=== PATIENT | male | born 1940 | race Caucasian/White ===

== ENCOUNTER → 2022-04-28 13:49 | Outpatient (CLI) | payer MEDICARE, OTHER, SELFPAY ==
--- NOTE | 2022-04-28 | DI.RAD.S_ITS ---
PROCEDURE: XR HIP W PEL IF DONE RT 2V INDICATIONS: RIGHT HIP PAIN TECHNIQUE: 2 views of the hip were acquired. COMPARISON: None. FINDINGS: Bones: No acute fractures or dislocations. Probable chronic healed inferior pubic ramus fracture. No suspicious bony lesions. The visualized pelvic ring appears intact. Severe joint space narrowing is seen in the superior right hip with subchondral sclerosis and marginal osteophyte formation. Soft tissues: No suspicious soft tissue calcifications or masses. IMPRESSION: Severe right hip osteoarthrosis. Dictated by: Reinaldo Ayala M.D. on 04/28/2022 at 16:17 Approved by: Reinaldo Ayala M.D. on 04/28/2022 at 16:18
== END ==
PROVIDERS: Referring Provider Internal Medicine; Visit Provider Internal Medicine
DX: M25.551 Pain in right hip (principal); M16.11 Unilateral primary osteoarthritis, right hip
CPT/HCPCS: 73502

== ENCOUNTER → 2022-10-06 09:39 | Outpatient (CLI) | payer MEDICARE, OTHER, SELFPAY ==
[2022-10-06 11:46] LABS: Add Manual Diff / Slide Review NO; Basophils Absolute Auto 0 /uL (0-100); Basophils Percent Auto 0.7 % (0-2); Eosinophils Absolute Auto 100 /uL (0-450); Eosinophils Percent Auto 1.6 % (2-4); Hemoglobin 14.4 g/dL (13.5-17.5); Lymphocytes Absolute Auto 1500 /uL (1100-4500); Lymphocytes Percent Auto 26.5 % (25-40); Mean Corpuscular HGB Conc 33.4 % (30-36); Mean Corpuscular Hemoglobin 31.2 PG (26-34); Mean Corpuscular Volume 93.4 fL (80-100); Monocytes Absolute Auto 500 /uL (0-900); Monocytes Percent Auto 8.4 % (3-14); Neutrophils Absolute Auto 3600 /uL (1500-7000); Neutrophils Percent Auto 62.8 % (50-75); Platelet Count 294 X10^3/uL (150-400); Red Cell Distribution Width 12.9 % (11.6-14.8); White Blood Cell Count 5.7 X10^3/uL (4.5-11.0)
[2022-10-06 11:48] LABS: Hemoglobin A1C% w Est Avg Glu 5.5 % (4.0-6.0)
[2022-10-06 11:59] LABS: BUN Creatinine Ratio 23.8 (6-22); Blood Urea Nitrogen 20 mg/dL (9-20); Carbon Dioxide 29 mmol/L (22-32); Chloride 103 mmol/L (98-107); Estimated Glomerular Filt Rate > 60 mL/min (>60); Glucose 93 mg/dL (80-110); HEMOLYSIS < 15 (0-50); Potassium 4.1 mmol/L (3.4-5.1); Sodium 142 mmol/L (137-145)
[2022-10-06 12:23] LABS: Appearance Urine UA CLEAR; Bilirubin Urine UA NEGATIVE (NEGATIVE); Color Urine UA YELLOW; Glucose Urine UA NEGATIVE (Negative); Ketones Urine UA NEGATIVE (NEGATIVE); Leukocyte Esterase Urine UA NEGATIVE (NEGATIVE); Nitrite Urine UA NEGATIVE (Negative); Occult Blood Urine UA TRACE-LYSED (Negative); Protein Urine UA NEGATIVE (Negative); Specific Gravity Urine UA 1.025 (1.000-1.035); Urobilinogen Urine UA 0.2 E.U./dL (0.2)
[2022-10-06 12:30] LABS: Bacteria Urine None Seen; Culture Indicated Urine Cult Not Indicated; Mucus Urine 2+ (Negative); RBC Urine None Seen (0-5/HPF); WBC Urine None Seen (0-5/HPF)
== END ==
PROVIDERS: Referring Provider Orthopaedic Surgery; Visit Provider Orthopaedic Surgery
DX: Z01.818 Encounter for other preprocedural examination (principal); R73.9 Hyperglycemia, unspecified; Z01.812 Encounter for preprocedural laboratory examination; N39.0 Urinary tract infection, site not specified
CPT/HCPCS: 36415; 80048; 81001; 83036; 85025; 93005; 93010

== ENCOUNTER → 2022-10-25 11:01 | Outpatient (CLI) | payer MEDICARE, OTHER, SELFPAY ==
[2022-10-25 11:40] LABS: COVID19 -Nasal RAPID Negative (Negative)
== END ==
PROVIDERS: PCP Internal Medicine; Referring Provider Orthopaedic Surgery; Visit Provider Orthopaedic Surgery
DX: Z20.822 Contact with and (suspected) exposure to COVID-19 (principal)
CPT/HCPCS: 87635; C9803

== ENCOUNTER 2022-10-26 06:09 | Day surgery (SDC) | payer MEDICARE, OTHER, SELFPAY ==
[2022-10-20 12:13] VITALS: BMI 23.6
[2022-10-26] VITALS (11 sets, daily range): BP systolic 85–147; BP diastolic 35–62; PULSE 54–62; RESP 12–24; TEMP 35.8–36.6; O2SAT 96–100; BMI 23.4
--- NOTE | 2022-10-26 | DI.RAD.S_ITS ---
PROCEDURE: XR HIP W PEL IF DONE RT 2V INDICATIONS: POST OP RIGHT HIP TECHNIQUE: AP pelvis and lateral view of the right hip acquired. COMPARISON: [facility], [place], XR HIP W PEL IF DONE RT 2V, 10/26/2022, 10:19. FINDINGS: Bones: Patient is status post right hip arthroplasty, with hardware components in expected positions. The hip joint appears congruent. The visualized bony structures appear intact. Soft tissues: Overlying postoperative changes are noted. No suspicious soft tissue densities. IMPRESSION: Expected appearance of right hip arthroplasty. Dictated by: Masood Hernandez M.D. on 10/26/2022 at 11:20 Transcribed by: JAVAN on 10/26/2022 at 11:21 Approved by: Masood Hernandez M.D. on 10/26/2022 at 16:31
--- NOTE | 2022-10-26 06:00 | DI.RAD.S_ITS ---
PROCEDURE: XR HIP W PEL IF DONE RT 2V INDICATIONS: ROQUE INNEROP TECHNIQUE: AP pelvis and lateral view of the right hip acquired. COMPARISON: [facility], [place], XR HIP W PEL IF DONE RT 2V, 04/28/2022, 14:03. [facility], [place], XR HIP W PEL IF DONE RT 2V, 10/26/2022, 10:29. FINDINGS: Intraoperative right hip arthroplasty changes are present. Images demonstrate good anatomic alignment. Surrounding osseous structures are intact. IMPRESSION: Intraoperative hip arthroplasty. Dictated by: Darlin Bran M.D. on 10/26/2022 at 16:27 Approved by: Darlin Bran M.D. on 10/26/2022 at 16:27
[2022-10-26] MEDS: VANCOMYCIN 1,000 MG/200 ML PIGGYBACK 200 MG IV (06:53)
[2022-10-26] MEDS: LACTATED RINGERS 1,000 ML 42 ML IV (06:55)
[2022-10-26] MEDS: ACETAMINOPHEN 325 MG TABLET 975 MG PO (07:05)
[2022-10-26] MEDS: CELECOXIB 200 MG CAPSULE PO (07:05)
--- NOTE | 2022-10-26 07:31 | PM.PREOP ---
Pre-operative Note COVID-19 COVID-19 status: Negative Interval Note History & Physical reviewed/Exam performed by Physician: Yes Changes to H&P: No
--- NOTE | 2022-10-26 07:32 | P.OP_ITS ---
Operative Date/Time/Diagnoses Date of procedure: 10/26/22 Time of procedure: 07:50 Pre-op diagnosis: right hip OA Post-op diagnosis: same Procedure & Clinicians Procedure: right total hip arthroplasty anterior approach Same procedure as scheduled: Yes Indications: The patient has had progressively worsening right hip pain with radiographic c hanges consistent with arthritis. Non-operative management has failed and the patient has requested total hip replacement. The risks, benefits and alternatives to surgery were discussed with the patient prior to proceeding. Risks discussed included, but were not limited to, failure to relieve pain, leg length discrepancy, dislocation, stiffness, infection, nerve damage, deep venous thrombosis, pulmonary embolism, stroke, coma, heart attack, permanent paralysis and , as well as the potential need for eventual revision of the prosthetic. Surgeon: Luz Maria Sewell Security Operations Manager: Graciela Gates Anesthesia Type: General and Spinal Operative Notes Findings: Severe right hip osteoarthritis, adequate stability Closure Type: primary Specimen(s): none sent Prosthetic devices, grafts, tissues, transplants, or devices: Sewell and nephew anthology size 10, size 58 R3 cup, neutral poly liner, 36 x -3 cobalt chrome head, one 6.5 mm screw Estimated Blood Loss (mL): 250 Blood products transfused: none Procedure in detail: The patient was brought to the operating room. Patient was carefully positioned in the supine position. Time-out was performed and antibiotics were given. Anesthesia was induced. He was positioned in the on the table in order to allow hyperextension of the hip. The right lower extremity was prepped and draped in a standard sterile fashion. An anterior right hip incision was made 1 fingerbreadth lateral to the anterior superior iliac spine and extended distally towards the greater trochanter. Dissection was carried out through skin and subcutaneous tissues. Superficial hemostasis was achieved. The fascia over the tensor fascia josh was defined and incised with a knife. Two Allis clamps were used to grasp the fascia. Tensor fascia josh was retracted laterally. A gelpi retractor was placed. Dissection was carried out down along the neck. The circumflex vessels were carefully identified and cauterized with the Aqua Mantis. There was good visualization of the femoral neck. A Cobra was placed superior to the neck and the gluteus fibers were carefully stripped from that superior aspect of the capsule. A 2nd retractor was placed along the inferior aspect of the neck. The rectus insertion along the capsule was partially released. A 3rd retractor that was then gently placed over the rim of the acetabulum under the rectus. Capsule was carefully incised and released from the intertrochanteric line circumferentially superior to the mid sagittal line and inferiorly to the mid sagittal line until the lesser trochanter was palpable. A tag stitch was placed both in the superior and inferior limb of the capsular insertion. Along the acetabulum capsule was also released up to the mid sagittal 12:00 position. A portion of the labrum was resected. A saw was used to perform an osteotomy at the level of the intertrochanteric line and the junction of the superior femoral neck leaving approximately 1 finger breath of residual inferior neck above the lesser trochanter. A 2nd cut was made along the femoral neck at the base of the head and a napkin ring of neck was removed. Corkscrew was placed in the femoral head and the head was removed without difficulty. Retractors were then repositioned around the acetabulum. Residual labrum was resected and additional osteophytes were removed. A reamer that was 4 mm below the templated size was placed by hand in the acetabulum and it was reamed to centralize the acetabulum. It was then reamed up to 2 under the templated size and fluoroscopy was brought in to confirm the position of the reaming and depth of reaming. I reamed 1 under the anticipated size. A trial cup was placed and noted that it was appropriately sized and fluoroscopy confirmed position and depth. The component was open and inserted without difficulty fluoroscopic imaging was used to confirm that the cup had been adequately seated and was well positioned. It was further stabilized with a single screw. Neutral poly liner was placed. The cup was tested and noted to be stable. Attention was then directed to the femur. The femur was gently hyperextended additional capsular release was performed as needed in order to allow adequate visualization of the proximal femur with elevation of the femur. Patient was placed in a hyperextended slightly adducted position with maximum external rotation. Box osteotome was used to check for any residual neck as well as sclerotic bone along the trochanter. Webster pepper was placed in the femur. Additional broaching was performed. Canal finder was used to determine the alignment of the canal and position. Size 1 broach was placed. The canal was then appropriately broached up to the templated size as long as there was adequate stability of the broach and serial advancement of the broach without excessive impingement. Specific attention was directed at avoiding varus attempting to direct the distal aspect of the broach more anteriorly and avoiding excessive anteversion. Trial reduction showed acceptable range of motion, good stability, no posterior impingement, taoist of leg length and appropriate lateral shuck. I also hyperflexed the hip and checked that there was no impingement anteriorly and there was good stability with flexion, adduction and internal rotation. Marcaine and Exparel were injected. The stem was placed without difficulty. Repeat trial reduction and x-ray showed acceptable overall position, length, and no evidence of the femoral fracture. Final head was placed. Wound was meticulously irrigated with normal saline. The hip was reduced and additional Exparel and Marcaine were injected. The capsule was closed with interrupted nonabsorbable sutures. The fascia of the tensor was closed with interrupted and running Vicryl. No drain was placed. Any tensor fascia josh muscle that appeared to be contused or injured which was a minimal amount was carefully resected. Capsule around the tensor was injected with Exparel and Marcaine. The skin was closed with barbed stitches for the subcutaneous tissue and skin. We also used surgical glue. The wound was dressed sterilely. Brief Betadine soak was also used and was meticulously irrigated with normal saline. Patient was transferred to recovery room in satisfactory condition. Complications: none Post-operative Condition: stable Disposition: Acute Care Plan for aftercare: The patient will be maintained on a standard total hip replacement protocol with weight bearing as tolerated and anterior hip precautions. The patient will receive Aspirin and sequential compression devices for DVT prophylaxis. The patient will be discharged home when safe for the home environment.
[2022-10-26] MEDS: CEFAZOLIN 2 GM/100 ML PREMIX 100 ML IV ×2 (07:55→16:20)
[2022-10-26] MEDS: TRANEXAMIC ACID 1,000 MG VIAL 2000 MG INJ ×2 (08:10→09:50)
--- NOTE | 2022-10-26 08:28 | SUR.OPER ---
Supine on padded Sully table with bilateral legs secured in padded positioning boots and suspended in positioning spars, operative leg in traction per surgeon. Head on one pillow. Arm on non-operative side secured on padded armboard <90 degrees abduction. Arm on operative side padded and resting across chest then secured with tape over sheet. Padded perineal post in place per surgeon.
[2022-10-26] MEDS: BUPIVACAINE LIPOSOME 266 MG/20 ML VIAL INJ (08:37)
[2022-10-26] MEDS: BUPIVACAINE 0.5% W/ EPI (PF) 30 ML VIAL INJ (08:38)
[2022-10-26] MEDS: LACTATED RINGERS 1,000 ML 125 ML IV ×2 (11:34→13:52)
[2022-10-26] MEDS: ACETAMINOPHEN 325 MG TABLET 650 MG PO (12:08)
[2022-10-26] MEDS: IBUPROFEN 400 MG TABLET PO (12:08)
--- NOTE | 2022-10-26 15:05 | PT.IIE ---
Current Diagnoses Unilateral primary osteoarthritis, right hip (10/26/22) Surgery Performed Operation Date: 10/26/22 07:45 Actual Procedures p Total Hip Arthroplasty/Anterior Approach(Right) - Luz Maria Sewell MD Surgical History (Last Updated 10/20/22 @ 12:11 by Denise Hamm, RN) No history of previous surgery Medical History (Last Updated 10/20/22 @ 12:17 by Denise Hamm, RN) COVID-19 virus infection Enlarged prostate Osteoarthritis Physical Therapy Inpatient Evaluation/Re-Eval M1 PT/OT-IP Prior Functional Status Start: 10/26/22 16:28 Freq: NEEDED Status: Active Protocol: Document 10/26/22 15:05 AB (Rec: 10/26/22 16:40 AB [id number]) Medical Review Prior Functional Status Medical History Reviewed Yes Communication able to make needs known Mobility and Gait pt stated that he is independent with all mobilities and ambulation without AD Social History Household Members spouse Living Arrangements House Number of Floors (Floors) One Floor Number of Stairs To Enter/Railing? 2 platform step to enter the house Home Environment Standard Height Toilet,Walk in Shower Home Equipment Front Wheel Walker,Straight Cane,Shower Seat without Backrest,Grab Bars Near Toilet ,Grab Bars In Shower Additional Social History Comment daughter will be staying with pt until Sat to assist M2 PT-IP Current Condition Start: 10/26/22 16:28 Freq: NEEDED Status: Active Protocol: Document 10/26/22 15:05 AB (Rec: 10/26/22 16:40 AB [id number]) Physical Therapy Current Condition Current Condition Evaluation Date 10/26/22 Treatment Diagnosis s/p R ROQUE anterior approach; difficulty in walking Onset Date 10/26/22 M3 PT-IP Subjective Start: 10/26/22 16:28 Freq: NEEDED Status: Active Protocol: Document 10/26/22 15:05 AB (Rec: 10/26/22 16:40 AB [id number]) Subjective Physical Therapy Visit Type Type Initial Evaluation Visit Start Time 15:05 Visit Stop Time 16:07 Total Visit Minutes 62 Number of IMPROVEMENT LEAD Visits 0 Physical Therapy Visit Comments Patient Comments agreeable to do PT; wants to go home today Therapy Pain Assessment Pain Present Pain Present Denied Pain M4 PT-IP Mobility and Gait Start: 01/24/23 16:28 Freq: NEEDED Status: Active Protocol: Document 10/26/22 15:05 AB (Rec: 10/26/22 16:40 AB [id number]) PT-Bed Mobility Assessment Supine to Sit Supine to Sit Standby Assistance Sit to Supine Sit to Supine Standby Assistance PT-Transfer Assessment Sit to and From Stand Sit to and from Stand Standby Assistance,1 Person Assistance,Use of Upper Extremities Equipment Transfer Assistive Device Gait Belt,Front Wheeled Walker Orthotic/Prosthetic Devices or Brace: No Transfers Transfer Destination Chair,Toilet Transfer Technique ambulated Transfer Ability Level of Assist Standby Assistance,1 Person Assistance,Use of Upper Extremities Comments Mobility Comments pt standing on EOB with nurse. Nurse stated that pt is wanting to use the toilet. pt 's spouse and daughter in room with pt. PT took over pt's care. pt ambulated using FWW towards the toilet. educated on hip precautions and cues provided. pt able to stand using FWW for support while using the toilet SBA. pt ambulated out from the toilet towards the sink using FWW SBA and cues for hip precuations and was able to maintain standing balance SBA while completing handwashing. pt ambulated to the chair using fWW SBA. educated pt and family further with hip precautions. pt completed sit to stand from the chair SBA and step transfer to the bed using FWW SBA. completed sit <>supine SBA. educated pt and family regarding stair climbing. pt ambulated from the chair to the platform walker using FWW SBA and completed up/down platform step with PT assisting on first set CGA and cues provided. pt repeated with daughter assisting and completed. pt ambulated in the hallway using FWW ~ 75 ft SBA. pt ambulated back to his room using FWW SBA. educated pt on safety and precautions. positioned pt on the chair. call light and table placed within reach. Gait Assessment Gait Gait Assistance Required: Standby Assistance Distance (Feet) 75 Able to Maintain Weight Bearing Status Yes During Gait Assistive Devices Assistive Device Gait Belt,Front Wheeled Walker Orthotic/Prosthetic Devices or Brace: No Gait Deviations General Gait Pattern Decreased Feet Clearance, Narrow Based Gait Factors Limiting Gait Function Factors Limiting Gait Function Decreased Activity Tolerance, Decreased Sensation,Decreased Strength,Limited Range of Motion,Pain,Poor Balance,Poor Safety Awareness Stair Climbing Assessment Evaluation Level of Assist On Stairs Contact Guard Assistance Devices Stair Climbing Assistive Devices Front Wheel Walker Technique/Endurance Stair Climbing Direction Ascend and Descend Stair Climbing Technique Step to Step Number of Steps Climbed 1 Query Text: Stair Climbing Set # Repetitions (reps) 2 PT-Balance Assessment Sitting Balance and Reactions Static Sitting Balance Ability Normal Dynamic Sitting Balance Ability Normal Standing Balance and Reactions Static Standing Balance Ability Good Dynamic Standing Balance Ability Fair Device Used FWW M5 PT-IP Objective Assessments Start: 10/26/22 16:28 Freq: NEEDED Status: Active Protocol: Document 10/26/22 15:05 AB (Rec: 10/26/22 16:40 AB [email or web address]) Orientation Orientation/Cognition Level of Alertness Alert Orientation Name,Place,Situation Language Function Ability No Deficits Noted Safety Awareness Decreased Safety Awareness Memory Description No Deficits Noted Gross Range of Motion Lower Extremity ROM Assessment Within Functional Limits Strength Lower Extremity Strength Hip 4-/5 Knee 4-/5 Sensation Assessment Sensation Sensation Description Numbness Comments Sensation Comments numbness on groin area M6 PT-IP Treatment Start: 10/26/22 16:28 Freq: NEEDED Status: Active Protocol: Document 10/26/22 15:05 AB (Rec: 10/26/22 16:40 AB [email or web address]) Physical Therapy Treatment Education Education Provided Precautions,Weight Bearing Status,Post-Op Packet,Safety M7 PT-IP Assessment and Plan Start: 10/26/22 16:28 Freq: NEEDED Status: Active Protocol: Document 10/26/22 15:05 AB (Rec: 10/26/22 16:40 AB [email or web address]) PT Summary Assessment and Plan Potential Rehabilitation Potential Good Status of Condition at Evaluation Stable Summary Impairments Pain,ROM,Strength,Balance, Coordination,Sensation,Tone, Cognition,Bed Mobility, Transfers,Gait,Activity Tolerance Assessment Summary pt requiring SBA to CGA with mobility using FWW and will have his family to assist him at home. pt may go home when medically stable. pt has outpt PT set up. Goals Bed Mobility Goal Independent Transfer Goal Independent,Front Wheeled Walker Gait Goal Independent,Front Wheel Walker Gait Distance 250 Other Goals up/down 2 platform step using FWW mod I Days to Meet Goals 5 Frequency of Treatment Frequency Of Treatment Twice a Day Treatment Plan Physical Therapy Treatment Plan Bed Mobility Training,Transfer Training,Gait Training, Therapeutic Exercise,Balance Retraining,Post Op Education, Discharge Planning,Hot or Cold Pack,Neuromuscular Re-ed, Coordination Retraining,Manual Therapy Precautions Anterior Hip Precautions No Hip Extension,No Hip External Rotation Weight Bearing Status Weight Bearing Status Weight Bear as Tolerated Allowed Weight Bearing Amount (enter % RLE WBAT or #) (%) Recommendations To Nursing Amount of Assist Needed 1 Person Assist Discharge Recommendations PT Discharge Recommendations Home with Assistance, Outpatient PT Transportation Needs at Discharge Private Vehicle
--- NOTE | 2022-10-26 16:55 | PC.NURSE ---
Discharge note: Discharge instructions given to patient, discussed importance of incision dressing care, mobility precautions, signs of concerning symptoms, and home safety. Patient and spouse verbalized understanding of discharge instructions. Home via private vehicle, accompanied by spouse. No new Rx.
--- NOTE | 2022-10-26 18:59 | P.PN_ITS ---
Subjective Subjective Date Patient Seen: 10/26/22 Time Patient Seen: 16:00 Interval history: Patient is up sitting in his chair with 2 family members including his at bedside. He does not complain of any, states his lower extremities are still a little bit numb. He has up to work with physical therapy he was able to walk up and down the hallway multiple times and do stairs. He is eager to go home today. Postop medications were prescribed at preop appointment. January discharge once he has urinated without difficulty. Exam Vital Signs (past 8 hours): - 10/26/22 11:02 10/26/22 11:20 10/26/22 11:50 Temperature 97.2 F L 96.7 F L 96.7 F L Pulse Rate 55 L 56 L 54 L Respiratory Rate 16 16 20 Blood Pressure 100/41 L 109/45 L 114/49 L Pulse Oximetry 96 97 98 Oxygen Flow Rate 0 0 10/26/22 12:20 10/26/22 13:20 Temperature 97.3 F L 97.8 F Pulse Rate 57 L 62 Respiratory Rate 19 20 Blood Pressure 112/52 L 122/56 L Pulse Oximetry 99 99 Oxygen Flow Rate 0 0 Oxygen Delivery Method Room Air Oxygen Flow Rate 0 Narrative Exam Narrative: Awake, alert, and oriented. Strength intact to lower extremities. Right calf soft, compressible, nontender with no palpable cords or masses. Intraoperative dressing CDI. [facility] Medical History COVID-19 virus infection Enlarged prostate Osteoarthritis Surgical History No history of previous surgery Social History household members: spouse Smoking Status: Former smoker alcohol intake: current Assessment & Plan Post-op Assessment and plan (1) S/P total right hip arthroplasty: Assessment and Plan narrative: Patient is POD#0 status post right total hip arthroplasty anterior approach. He is doing very well and has worked with physical therapy. Had no trouble walking up and down the halls and doing stairs. He will continue physical therapy as outpatient. Pain is well controlled, oxycodone was prescribed to him at preoperative appointment -patient stated he already had aspirin, Tylenol, Aleve, and MiraLax at home. Follow-up with [facility] at scheduled appointment with Dr. Sewell on 11/10/2022. Postoperative Procedures: Procedures Operation Date: 10/26/22 07:45 Actual Procedure Side Surgeon p Total Hip Arthroplasty/Anterior Approach Right Luz Maria Sewell MD Postoperative day: 0 Postoperative status: doing well Postoperative plan: routine post-op care
== END 2022-10-26 17:03 | disposition home or self-care (01) ==
LOC: OR 06:11 → AC 06:11
PROVIDERS: PCP Internal Medicine; Referring Provider Orthopaedic Surgery; Visit Provider Orthopaedic Surgery
PROC: (CPT 27130; principal; 2022-10-26 07:45)
DX: M16.11 Unilateral primary osteoarthritis, right hip (principal)
CPT/HCPCS: 27130; 73502; 97161; 97530; C1776; C9290; J0690; J1100; J2405; J2704; J3010